=== PATIENT | female | born 1995 | race African-American/Black ===

== ENCOUNTER 2022-03-18 15:08 | Emergency (ER) | payer OTHER ==
[~2022-03-18] VITALS: Ht 170.2 cm; Wt 70.3 kg
[2022-03-18 15:15] VITALS: BP 120/66
[2022-03-18] MEDS ORDERED: TDAP [DIPH/PERTUSSIS/TET] 0.5 ML VIAL IM ONE ×2 (16:00→16:06)
--- NOTE | 2022-03-18 16:15 | NUR ---
TILE SETTER APPRENTICE AT BEDSIDE
[2022-03-18] MEDS ORDERED: CEPH500C2 PO (17:37)
[2022-03-18] MEDS ORDERED: IBUP-1955 PO (17:37)
[2022-03-18] MEDS ORDERED: HYDROCODONE/APAP 10/325MG TABLET PO ONE (18:00)
[2022-03-18] MEDS ORDERED: HYDROCODONE/APAP 10/325MG TABLET ONE (18:00)
[2022-03-18] MEDS ORDERED: CEPHALEXIN MONOHYDRATE 500 MG CAPSULE PO ONE ×2 (18:00)
[2022-03-18] MEDS ORDERED: HYDR-4209 PO (18:02)
--- NOTE | 2022-03-18 18:12 | NUR ---
EMT AT BEDSIDE FOR WOUND CARE
--- NOTE | 2022-03-18 18:48 | NUR ---
Patient discharged to home in stable condition. Written and verbal after care instructions given. Patient verbalizes understanding of instruction.
== END 2022-03-18 18:48 | disposition home or self-care (01) ==
LOC: ER 15:11
DX: S80.11XA Contusion of right lower leg, initial encounter (principal); S90.811A Abrasion, right foot, initial encounter; V89.9XXA Person injured in unspecified vehicle accident, initial encounter; Y93.89 Activity, other specified; Y92.89 Other specified places as the place of occurrence of the external cause; Y99.8 Other external cause status
CPT/HCPCS: 99284; 90471; 90715; 73610; 73552; 73630; 73590; A6253